=== PATIENT | female | born 1995 | race Hispanic/Latino ===

== ENCOUNTER 2022-08-10 22:56 | Emergency (ER) | payer MEDICAID, OTHER ==
[~2022-08-10] VITALS: Ht 144.8 cm; Wt 85.7 kg
[~2022-08-10 22:56] MED LIST: FERR-82 PO; PREN-154 PO
[2022-08-10] MEDS ORDERED: ACETAMINOPHEN 500 MG TABLET PO ONE (23:30)
[2022-08-10] MEDS ORDERED: IBUPROFEN 600 MG TABLET PO ONE (23:30)
[2022-08-11] MEDS ORDERED: ALBU90AE2 IH (01:26)
[2022-08-11] MEDS ORDERED: METH4TAB3 PO (01:26)
[2022-08-11 02:11] VITALS: BP 112/68
== END 2022-08-11 02:19 | disposition home or self-care (01) ==
LOC: EDH 22:56
DX: B34.9 Viral infection, unspecified (principal); J02.9 Acute pharyngitis, unspecified; Z20.822 Contact with and (suspected) exposure to COVID-19; J45.909 Unspecified asthma, uncomplicated; Z79.1 Long term (current) use of non-steroidal anti-inflammatories (NSAID)
CPT/HCPCS: 99284; 71045; 87635; 87880; 87804 ×2; 81025; C9803